=== PATIENT | male | born 1980 | race Caucasian/White ===

== ENCOUNTER → 2019-07-15 | Outpatient (REF) | LOC: M LAB LCGH 13:50 | PROVIDERS: ATTEND Family Medicine | DX: L57.0 Actinic keratosis (principal) ==

== ENCOUNTER → 2021-12-06 | Outpatient (REF) | payer OTHER | LOC: M SMT 12:46 | PROVIDERS: ATTEND Urology | DX: Z30.2 Encounter for sterilization (principal) ==

== ENCOUNTER → 2024-03-04 | Outpatient (REF) | payer OTHER | LOC: M LAB REF 16:05 | PROVIDERS: ATTEND Otolaryngology | DX: D23.39 Other benign neoplasm of skin of other parts of face (principal) ==

== ENCOUNTER 2024-11-22 15:34 | Emergency (ER) | payer OTHER ==
[~2024-11-22] VITALS: Ht 157.5 cm; Wt 122.8 kg
[2024-11-22 15:43] VITALS: TEMP 98.2
[2024-11-22 18:03] LABS: BASO # 0.1 10^3/uL (0.0-0.2); BASO % 1.1 % (0.0-1.0); EOS # 0.1 10^3/uL (0.0-0.5); EOS % 1.9 % (0.0-3.0); HEMOGLOBIN 14.7 g/dl (13.5-17.5); LYMPH % 32.3 % (24.0-44.0); MEAN CORPUSCULAR HEMOGLOBIN 30.9 pg (27.0-33.0); MEAN CORPUSCULAR HGB CONC 34.2 g/dl (32.0-36.5); MEAN CORPUSCULAR VOLUME 90.5 fl (80.0-96.0); MONO # 0.7 10^3/uL (0.0-0.8); NEUTROPHILS # 3.3 10^3/uL (1.5-8.5); NEUTROPHILS % 53.2 % (36.0-66.0); PLATELET COUNT, AUTOMATED 195 10^3/uL (150-450); RED BLOOD COUNT 4.75 10^6/uL (4.30-6.10); WHITE BLOOD COUNT 6.3 10^3/uL (4.0-10.0)
[2024-11-22 18:33] LABS: CK-MB VALUE MASS 4.9 NG/ML (<3.6)
[2024-11-22 18:35] LABS: BLOOD UREA NITROGEN 13 MG/DL (9-23); CALCIUM LEVEL 8.5 MG/DL (8.5-10.1); CARBON DIOXIDE LEVEL 26 MMOL/L (20-31); CHLORIDE LEVEL 107 MMOL/L (98-107); CREATININE FOR GFR 0.85 MG/DL (0.70-1.30); GLOMERULAR FILTRATION RATE > 60.0 (>60); GLUCOSE, FASTING 97 MG/DL (60-100); POTASSIUM SERUM 3.9 MMOL/L (3.5-5.1); SODIUM LEVEL 142 MMOL/L (136-145)
[2024-11-22 18:40] LABS: CPK CREATINE PHOSPHOKINASE 288 U/L (46-171)
[2024-11-22 18:49] VITALS: BP 147/92; O2SAT 96
[2024-11-22] MEDS ORDERED: ISOVUE-370 76% 100ML VIAL As Ordered ONE (18:55)
== END 2024-11-22 20:38 | disposition home or self-care (01) ==
LOC: M ED 15:34
DX: F41.9 Anxiety disorder, unspecified (principal); I10 Essential (primary) hypertension; R07.89 Other chest pain; I48.91 Unspecified atrial fibrillation; F32.A Depression, unspecified; I71.21 Aneurysm of the ascending aorta, without rupture
CPT/HCPCS: 36415; 71275; 80048; 82550; 82553; 84484; 85025; 85379; 93005; 93041; 99284; Q9967